=== PATIENT | male | born 1975 | race Caucasian/White ===

== ENCOUNTER 2020-12-05 07:55 | Outpatient (REF) | payer BC, SELFPAY ==
--- NOTE | ~2020-12-05 | XR_ITS ---
EXAMINATION: XR LUMBOSACRAL SPINE CLINICAL INFORMATION: Low back pain. COMPARISON: None TECHNIQUE: Three views of the lumbosacral spine. FINDINGS: The vertebral bodies and posterior elements are normal. The disc spaces are preserved and the vertebral alignment is normal. The paraspinal soft tissues are normal. XR/XR lumbar spine 2-3V IMPRESSION: Unremarkable lumbar spine exam.
[2020-12-05 08:40] LABS: MANUAL DIFF FLAG NO
[2020-12-05 09:05] LABS: Basophils Percent Auto 0.5 % (0-2); Eosinophils Absolute Auto 0.1 X10*3/uL (0.0-0.4); Eosinophils Percent Auto 3.3 % (0-4); Hematocrit 47.7 % (42-52); Hemoglobin 14.7 g/dl (14.0-18.0); Imm Gran Abs Auto 0.01 X10*3/uL (0.00-0.03); Imm Gran Pct Auto 0.2 % (0.0-0.4); Lymphocytes Absolute Auto 1.2 X10*3/uL (1.2-4.9); Mean Corpuscular HGB Conc 30.8 g/dl (31.0-36.0); Mean Corpuscular Hemoglobin 28.9 pg (27.0-33.0); Mean Corpuscular Volume 93.7 fL (80-98); Mean Platelet Volume 10.8 fL (9.4-12.4); Monocytes Absolute Auto 0.4 X10*3/uL (0.1-1.2); Monocytes Percent Auto 8.8 % (2-11); Neutrophils Absolute Auto 2.5 X10*3/uL (2.0-8.3); Neutrophils Percent Auto 59.2 % (45-73); Platelet Count 202 X10*3/uL (160-400); Red Blood Count 5.09 X10*6/uL (4.60-5.80); Red Cell Distribution Width 12.1 % (11.0-16.0); White Blood Count 4.2 X10*3/uL (4.8-10.8)
[2020-12-05 09:11] LABS: Alanine Aminotransferase 20 U/L (0-40); Alkaline Phosphatase 63 U/L (39-117); Anion Gap 12 (12-20); Aspartate Amino Transferase 24 U/L (5-37); Bilirubin Total 0.5 mg/dL (0.0-1.0); Blood Urea Nitrogen 16 mg/dL (9-16); Calcium 9.1 mg/dL (8.4-10.2); Carbon Dioxide 28 mmol/L (22-29); Chloride 106 mmol/L (96-108); Cholesterol 163 mg/dL; Estimated Glomerular Filt Rate > 60; Glucose Random 94 mg/dL (60-115); HDL Cholesterol 47 mg/dL; LDL Cholesterol Calculated 97 mg/dl; Potassium 4.8 mmol/L (3.3-5.1); Sodium 141 mmol/L (135-145); Total Protein 6.5 g/dL (6.5-8.0); Triglycerides 97 mg/dL
== END 2020-12-05 07:56 | disposition home or self-care (01) ==
LOC: HO.LAB 07:55
PROVIDERS: PCP Internal Medicine; Visit Provider Internal Medicine
DX: D64.9 Anemia, unspecified (principal); K21.9 Gastro-esophageal reflux disease without esophagitis; M54.5 Low back pain
CPT/HCPCS: 36415; 72100; 80053; 80061; 85025

== ENCOUNTER → 2020-12-26 14:31 | Outpatient (BNV) | payer BC, SELFPAY | PROVIDERS: PCP Internal Medicine; Referring Provider Internal Medicine; Visit Provider Internal Medicine | DX: D72.819 Decreased white blood cell count, unspecified (principal) | CPT/HCPCS: 99203; 99213 ==

== ENCOUNTER 2021-02-14 11:46 | Outpatient (REF) | payer BC, SELFPAY | END 2021-02-14 11:47 | disposition home or self-care (01) | LOC: HO.LNP 11:46 | PROVIDERS: Visit Provider Internal Medicine | DX: Z20.822 Contact with and (suspected) exposure to COVID-19 (principal); J06.9 Acute upper respiratory infection, unspecified | CPT/HCPCS: U0003; U0005 ==

== ENCOUNTER 2021-04-10 06:20 | Emergency (ER) | payer BC, SELFPAY ==
--- NOTE | ~2021-04-10 | XR_ITS ---
EXAMINATION: XR LUMBOSACRAL SPINE CLINICAL INFORMATION: Back pain COMPARISON: 12/05/2020 TECHNIQUE: Three views of the lumbosacral spine. FINDINGS: 5 lumbar type vertebral bodies are normal in height and alignment. Intervertebral disc spaces are preserved. Straightening of lumbar lordosis. Tiny anterior degenerative osteophytes L2 and L3. Spinous processes are intact. Minimal left convex scoliosis may be positional as it was not seen on the prior study. Limited views of the sacrum and sacroiliac joints are unremarkable. XR/XR lumbar spine 2-3V IMPRESSION: Minimal degenerative changes without evidence of acute injury.
[2021-04-10 06:31] VITALS: BP 119/78; PULSE 82; RESP 18; TEMP 36.7; O2SAT 100; BMI 22.3
[2021-04-10] MEDS: Ibuprofen 600 MG TABLET PO (07:05)
[2021-04-10 07:13] LABS: Appearance Urine CLEAR; Color Urine YELLOW; Glucose Urine UA NEG (NEG); Leukocyte Esterase Urine NEG (NEG); Nitrite Urine NEG (NEG); PH 6.5 (5.0-8.0); Urine Blood NEG (NEG); Urine Ketones NEG (NEG); Urine Protein TRACE MG/DL (NEG-TRACE)
--- NOTE | 2021-04-10 07:20 | ED.BACK ---
HPI - Back Pain/Injury General Chief Complaint: Back Pain/Injury Stated Complaint: Back pain Time Seen by Provider: 04/10/21 06:56 Source: patient Mode of arrival: ambulatory Limitations: no limitations History of Present Illness HPI Narrative: 46 years old male came in for evaluation of low back pain. Patient was fixing his daughter bed needed to bend and pulling the mattress while his pending, patient initially felt okay then shortly after started to have low back pain that progressively over night got worse, pain is radiating to both buttocks area, patient declined any urinary or stool incontinence. Patient still able to ambulate with difficulty and pain. No other injuries to the low back. Patient has no history of kidney stones in the past. Related Data Home Medications Medication Instructions Recorded Confirmed omega-3 fatty acids 1,250 mg PO DAILY 12/26/20 02/27/21 Previous Rx's Medication Instructions Recorded acetaminophen 650 mg 650 mg PO DAILY 90 Days #90 tab 10/01/20 tablet,extended release (Tylenol Arthritis Pain) ibuprofen 800 mg tablet 800 mg PO Q8H PRN 30 Days #30 tab 10/01/20 lidocaine 5 % topical patch 1 patch TOPICAL DAILY 15 Days #15 10/01/20 ea gabapentin 400 mg capsule 400 mg PO BEDTIME #30 cap 11/14/20 cyclobenzaprine 10 mg tablet 10 mg PO TID PRN #14 tab 04/10/21 ibuprofen 600 mg tablet 600 mg PO TID PRN #20 tab 04/10/21 Allergies Allergy/AdvReac Type Severity Reaction Status Date / Time No Known Allergies Allergy Verified 02/27/21 16:16 Review of Systems Review of Systems: All other systems are reviewed and are negative Constitutional: Reports as per HPI and Reports no additional constitutional complaints Eyes: Reports as per HPI and Reports no additional eye complaints Reports system reviewed and no additional complaints, except as documented Cardiovascular: Reports as per HPI and Reports no additional cardiovascular complaints Respiratory: Reports as per HPI and Reports no additional respiratory complaints Gastrointestinal: Reports as per HPI and Reports no additional gastrointestinal complaints Genitourinary: Reports no additional female genitourinary complaints Musculoskeletal: Reports no additional musculoskeletal complaints Skin/Breast: Reports system reviewed and no additional complaints, except as docu Psychiatric: Reports no additional psychiatric complaints Endocrine: Reports no additional endocrine complaints Hematologic/Lymphatic: Reports no additional hematologic/lymphatic complaints Allergic/Immunologic: Reports no additional allergic/immunologic complaints Reports system reviewed and no additional complaints, except as documented and Reports Abnormal speech present [facility] Past Medical History Medical History GERD (gastroesophageal reflux disease) Leukopenia Lumbar back pain Polysubstance abuse Surgical History History of hemorrhoidectomy Family History Family History Father Lung cancer Mother No problems noted. Brother In good health Son In good health Daughter In good health Social History Social History Housing: Apartment Alcohol intake: unknown Patient Tobacco Use Status: Former Tobacco user Quit Date: 1998 Tobacco use type: Cigarette Use of substances other than those prescribed or required for medical reasons: No Substance Use Type: Marijuana Advance Directives: No Current occupational status: employed Physical Exam Vital Signs: Vital Signs: Last Vital Signs Temp 98.4 F 04/10/21 08:21 Pulse 64 04/10/21 08:21 Resp 14 04/10/21 08:21 BP 103/57 L 04/10/21 08:21 Pulse Ox 95 04/10/21 08:21 Body Mass Index 22.3 Vital signs have been reviewed as appeared to be correct. Blood pressure normal. Heart rate normal. Respiration rate normal. Temperature normal. Oxygen saturation normal. Appearance: Alert. Oriented X3. No acute distress. Head: Normal external exam. Normocephalic. Atraumatic. No Gonzalez signs noted. No raccoon eyes noted Eyes: PERRLA. EOMI. Conjunctiva and sclera normal. Eyelids normal. ENT: TM's Normal. Pharynx normal. Uvula midline. Moist mucous membranes. No trismus noted. No drooling noted. No muffled voice noted. Neck: Normal inspection. Neck supple. FROM. No adenopathy. Thyroid Normal. No meningeal signs. No neck mass noted. CVS: Normal heart rate and rhythm. Heart sound normal. No murmurs noted. Pulses normal throughout. Respiratory: No respiratory distress. Painless inspiration. Breath sounds normal. No wheezes/rales/rhonchi noted. Chest nontender. No accessory muscle usage noted or decreased air movement noted. Abdomen: Soft and nontender. Bowel sounds normal in all 4 quadrants. No distention noted. No organomegaly noted. No visible injury noted. Back: No CVA tenderness. No step-off, no deformity, there is paravertebral muscle spasm, no point of tenderness, limited range of motion due to pain, able to ambulate Skin: Skin warm and dry. Normal skin color. Normal skin turgor. No rashes/lesions/lacerations noted. Extremities: No lower extremity edema. Extremities exhibit normal range of motion. Extremities nontender. Neuro: Oriented X 3. Cranial nerve exam: II-XII are grossly intact No motor deficit. No sensory deficit. Reflexes normal. Able to ambulate on both toes and heels, Course Course Course Narrative: Assessment and plan. 46-year-old male came in with low back pain after bending and pulling heavy object since last night, physical exam/x-ray of the left lumbar spine/UA is indicating pain is mostly muscular. MDM - Back Pain/Injury Medical Records Attestation: I reviewed the patient's medical records. Lab Data Attestation: I reviewed the patient's lab results. Labs: Lab Results 04/10/21 Range/Units 07:06 Urine Color YELLOW Urine Appearance CLEAR Urine pH 6.5 (5.0-8.0) Ur Specific [place] 1.020 (1.005-1.025) Urine Protein TRACE (NEG-TRACE) MG/DL Urine Glucose (UA) NEG (NEG) MG/DL Urine Ketones NEG (NEG) MG/DL Urine Blood NEG (NEG) Urine Nitrite NEG (NEG) Ur Leukocyte Esterase NEG (NEG) Imaging Data Lumbar spine x-ray: Radiologist's impression: Minimal degenerative changes without evidence of acute injury. Discharge Plan Discharge Clinical Impression: Lumbar back pain, Strain of lumbar region Patient Disposition: Home, Self-Care Instructions: Muscle Strain (ED) Prescriptions: New ibuprofen 600 mg tablet 600 mg PO TID PRN (Reason: pain) Qty: 20 RF: 0 cyclobenzaprine 10 mg tablet 10 mg PO TID PRN (Reason: muscle spasm) Qty: 14 RF: 0 No Action acetaminophen [Tylenol Arthritis Pain] 650 mg tablet extended release 650 mg PO DAILY 90 Days Qty: 90 RF: 1 ibuprofen 800 mg tablet 800 mg PO Q8H PRN (Reason: pain) 30 Days Qty: 30 RF: 0 lidocaine 5 % adhesive patch,medicated 1 patch topical DAILY 15 Days Qty: 15 RF: 0 gabapentin 400 mg capsule 400 mg PO BEDTIME Qty: 30 RF: 6 [place] 3 Capsule 1,250 mg PO DAILY RF: 0 Referrals: Jorgito Hunter MD [Primary Care Provider] - 2 days Stand Alone Forms: Work/School Release Interventions: ED Discharge Assessment Last Done: 04/10/21 09:13 Discharge Date/Time: 04/10/21 09:14
[2021-04-10 08:21] VITALS: BP 103/57; PULSE 64; RESP 14; TEMP 36.9; O2SAT 95
== END 2021-04-10 09:14 | disposition home or self-care (01) ==
PROVIDERS: Emergency Provider Emergency Medicine; PCP Internal Medicine
DX: S39.012A Strain of muscle, fascia and tendon of lower back, initial encounter (principal); X50.1XXA Overexertion from prolonged static or awkward postures, initial encounter; Y93.E9 Activity, other interior property and clothing maintenance; Y92.003 Bedroom of unspecified non-institutional (private) residence as the place of occurrence of the external cause; Y99.9 Unspecified external cause status
CPT/HCPCS: 72100; 81003; 99283; 99284

== ENCOUNTER 2022-08-22 10:21 | Day surgery (SDC) | payer BC, SELFPAY ==
--- NOTE | 2022-08-21 13:26 | HO.ANESPROP2 ---
Documented by User: Kathleen Carmona NP 08/21/22 13:27 HPI - Anesthesia Eval Consult details Narrative: 47yo M for Colonoscopy Hx polysub abuse PMFSH Active Problems Active Problems: All Active Problems (Updated 11/14/21 @ 17:46 by Raquel Faulkner MD) Upper respiratory tract infection (Acute) Bright red blood per rectum (Acute) Screening for colon cancer (Acute) Physical exam (Acute) Leukopenia (Acute) Lumbar back pain (Acute) GERD (gastroesophageal reflux disease) (Acute) Past Medical History Medical History GERD (gastroesophageal reflux disease) Leukopenia Lumbar back pain Physical exam Polysubstance abuse Family History Family History Father Lung cancer Mother No problems noted. Brother In good health Son In good health Daughter In good health Surgical History Surgical History (Updated 04/02/22 @ 13:37 by Aleta Ku RN) H/O colonoscopy History of hemorrhoidectomy Social History Social History Housing: Apartment Alcohol intake: former Patient Tobacco Use Status: Former Tobacco user Quit Date: 1998 Tobacco use type: Cigarette e-Cigarette/Vaping Use: Never Used Use of substances other than those prescribed or required for medical reasons: No Substance Use Type: Marijuana Are you DNR?: No Advance Directives: No Advance Directives Information Provided: Yes service: No Current occupational status: employed Cognitive needs: No Hearing needs: No Vision needs: No Meds Allergies Allergy/AdvReac Type Severity Reaction Status Date / Time No Known Allergies Allergy Verified 12/03/21 10:49 Home Medications Medication Instructions Recorded Confirmed Last Taken Type omega-3 fatty acids 1,250 mg PO DAILY 12/26/20 11/14/21 Unknown History Exam Exam Date and Time: August 21, 20221325 Assessment and Plan Assessment Anesthesia Assessment: Chart Reviewed Documented by User: Kamila Siegel MD 08/22/22 12:07 [facility] Past Medical History Medical History GERD (gastroesophageal reflux disease) Leukopenia Lumbar back pain Physical exam Polysubstance abuse Family History Family History Father Lung cancer Mother No problems noted. Brother In good health Son In good health Daughter In good health Family history of problems with anesthesia: No Surgical History Surgical History (Updated 04/02/22 @ 13:37 by Aleta Ku RN) H/O colonoscopy History of hemorrhoidectomy History of Problems with Anesthesia: No Social History Social History Housing: Apartment Alcohol intake: former Patient Tobacco Use Status: Former Tobacco user Quit Date: 1998 Tobacco use type: Cigarette e-Cigarette/Vaping Use: Never Used Use of substances other than those prescribed or required for medical reasons: No Substance Use Type: Marijuana Are you DNR?: No Advance Directives: No Advance Directives Information Provided: Yes service: No Current occupational status: employed Cognitive needs: No Hearing needs: No Vision needs: No Meds Allergies Allergy/AdvReac Type Severity Reaction Status Date / Time No Known Allergies Allergy Verified 12/03/21 10:49 Home Medications Medication Instructions Recorded Confirmed Last Taken Type omega-3 fatty acids 1,250 mg PO DAILY 12/26/20 11/14/21 Unknown History Exam Airway Mallampati Class: II TM Dist: >3cm Neck ROM: Full Heart: rrr Lungs: cta Assessment and Plan Assessment Anesthesia Assessment: Anesthesia Plan Discussed Final Anesthetic Review Family History of Problems with Anesthesia: No History of Problems with Anesthesia: No NPO: Yes ASA Class: II Final Preanesthetic Review: No Changes in Pt Med Stat, Meds/Allgs Chart Reviewed and Consent Obtained/Reviewed Patient Risk: Intermediate Procedure Risk: Intermediate Anesthetic Plan Anesthetic Plan: MAC: Disposition: Standard PACU
--- NOTE | 2022-08-22 11:25 | MHC.SHP ---
Pre-Procedural Eval Section A Date of Service: 08/22/22 The patient is an INPATIENT: No The History & Physical has been completed within 30 days and I have reviewed it.: No Section B Chief Complaint: screening Details of Present Illness: Colon cancer screening Relevant Family History (Specify if Yes): No Relevant Social History: Tobacco Use (Former smoker) Present Medications: see Short Stay Collaborative assessment Medical History: Significant History (Polysubstance abuse) History of Previous Operations: Relevant previous surgery/procedure and date(s) (History of hemorrhoidectomy) Allergies: Allergies Allergy/AdvReac Type Severity Reaction Status Date / Time No Known Allergies Allergy Verified 12/03/21 10:49 Review of Systems Sugical H&P ROS: Negative: Constitution, Cardiovascular, Respiratory and Gastrointestinal Exam Surgical H&P Exam: Normal: Heart, Normal: Lungs, Normal: Extremities and Normal: Abdomen Plan Diagnosis/Plan: Unchanged I have reviewed the history and physical and performed a pertinent physical examination on my patient. No changes have occurred unless specified. Time Spent With Patient Time: Total time managing care of this patient today ____ minutes.
[2022-08-22 11:41] VITALS: BMI 25.1
[2022-08-22 11:49] VITALS: BP 111/67; PULSE 82; RESP 16; TEMP 37; O2SAT 96
[2022-08-22 11:51] LABS: Amphetamine Screen Urine Not Detected (Not Detect); Barbiturates, Urine Not Detected (Not Detect); Benzodiazepines Screen Urine Not Detected (Not Detect); Cannabinoid Screen Urine Not Detected (Not Detect); Cocaine Screen Urine Not Detected (Not Detect); Fentanyl, urine Not Detected (Not Detect); Opiate Screen Urine Not Detected (Not Detect); Phencyclidine Screen Urine Not Detected (Not Detect)
[2022-08-22] MEDS: Lactated Ringers 1,000 ML 100 ML IVCONT (11:51)
--- NOTE | 2022-08-22 12:06 | PM.OP ---
Brief Operative Note Date of Service: 08/22/22 Pre-op diagnosis: Colon cancer screening, Post-op diagnosis: other (Colon polyps, diverticulosis, hemorrhoids) Procedure: COLONOSCOPY TILL CECUM WITH SNARE POLYPECTOMY, SUBMUCOSAL INJECTION AND HEMOCLIP PLACEMENT Surgeon: Honey Li MD Anesthesia: MAC Was an International Marketing Manager used for this Procedure?: Yes International Marketing Manager: Oly Chung Estimated blood loss (mL): 1 Pathology: other (a. ascending colon polyp) Condition: stable Disposition: PACU
--- NOTE | 2022-08-22 12:11 | W.PM.OPN ---
Operative Note Operative Note Date of Service: 08/22/22 Narrative: COLONOSCOPY TILL CECUM WITH SNARE POLYPECTOMY, SUBMUCOSAL INJECTION AND HEMOCLIP PLACEMENT Indication:? Colon cancer screening Endoscopist:? Honey Li MD Anesthesia Provider:?Dr Figueroa Anesthesia type:?MAC Consent: Indications for the procedure and potential complications of bleeding, perforation, reaction to medications and missed diagnosis were discussed with the patient and informed consent was obtained. Instrument: Olympus CF H 190 L variable stiffness adult colonoscope Monitoring: Vital signs and clinical assessment, intermittent blood pressure monitoring, continuous EKG monitoring, Pulse oximetry and Carbon Dioxide monitoring were done throughout the procedure. Please see anesthesia flowsheet. Colon withdrawl time was 20 minutes. Procedure: The patient was placed in the left lateral decubitis position and pre-procedure medications were administered. After a digital rectal examination of the ano-rectum, the video colonoscope was inserted into the rectum and advanced through the colon to the cecum. The colonoscope was slowly withdrawn in a retrograde panoramic fashion and the colon mucosa was carefully examined including a retroflexed view of the rectum. Findings and interventions are described below. Procedure Difficulty: Colon was long and tortuous and there was some loop formation - no maneuvers were required Findings: Terminal Ileum: Not evaluated Cecum: Normal Ascending Colon: A 2.5 x 3 cms flat polyp in the proximal AC - adjacent to ICV. Polyp was raised with 6 cc of normal saline and removed with a hot snare. Polypectomy site was closed with 2 hemoclips and marked with Marisol ink Transverse Colon: Normal Descending Colon: Moderate diverticulosis Sigmoid Colon: Moderate diverticulosis Rectum: Normal Ano-rectum: Moderate internal hemorrhoids Colon preparation: Good after some irrigation Impression and Post Procedure Diagnosis: Colonoscopy Findings: One large polyp removed Moderate diverticulosis seen in the left colon Moderate hemorrhoids on retroflexed exam. Plan: Await pathology results Patient has an appointment on 08/27/22 in the GI Clinic with Dr Perry. Repeat Colonoscopy interval based on path results - in 1 year to check polypectomy site in the AC if AC polyp is adenomatous and 10 years if polyps are hyperplastic (adult colonoscope for future colonoscopies). Above findings were reviewed with the patient and colon polyps and diverticulosis handouts were given in the discharge area
[2022-08-22 13:03] VITALS: BP 97/61; PULSE 74; RESP 15; TEMP 36.2; O2SAT 98
[2022-08-22 13:18] VITALS: BP 106/50; PULSE 69; RESP 12; O2SAT 96
[2022-08-22 13:33] VITALS: BP 106/55; PULSE 75; RESP 14; TEMP 36.7; O2SAT 98
== END 2022-08-22 14:27 | disposition home or self-care (01) ==
PROVIDERS: Nurse Practitioner; PCP Internal Medicine; Visit Provider Internal Medicine Gastroenterology
PROC: 0DJD8ZZ Inspection of Lower Intestinal Tract, Via Natural or Artificial Opening Endoscopic (ICD-10-PCS; CPT 45378; principal; 2022-08-22 11:40)
DX: Z12.11 Encounter for screening for malignant neoplasm of colon (principal); D12.2 Benign neoplasm of ascending colon; K57.30 Diverticulosis of large intestine without perforation or abscess without bleeding; K64.8 Other hemorrhoids; K59.00 Constipation, unspecified; K50.00 Crohn's disease of small intestine without complications; K21.9 Gastro-esophageal reflux disease without esophagitis; D72.819 Decreased white blood cell count, unspecified; F12.90 Cannabis use, unspecified, uncomplicated; F19.10 Other psychoactive substance abuse, uncomplicated; Z79.899 Other long term (current) drug therapy; Z98.890 Other specified postprocedural states; Z87.891 Personal history of nicotine dependence
CPT/HCPCS: 45385; 45381; 80307; 88305

== ENCOUNTER → 2022-08-27 15:02 | Outpatient (BNVA) | payer BC, SELFPAY | PROVIDERS: PCP Internal Medicine; Visit Provider Internal Medicine | DX: Z13.89 Encounter for screening for other disorder (principal) ==

== ENCOUNTER 2022-12-20 08:50 | Outpatient (REF) | payer BC, SELFPAY ==
[2022-12-20 09:04] LABS: MANUAL DIFF FLAG NO
[2022-12-20 10:28] LABS: Basophils Percent Auto 0.7 % (0-2); Eosinophils Absolute Auto 0.1 X10*3/uL (0.0-0.4); Eosinophils Percent Auto 2.1 % (0-4); Hematocrit 47.8 % (42.0-52.0); Hemoglobin 15.1 g/dl (14.0-18.0); Imm Gran Abs Auto 0.04 X10*3/uL (0.00-0.03); Imm Gran Pct Auto 0.9 % (0.0-0.4); Lymphocytes Absolute Auto 1.2 X10*3/uL (1.2-4.9); Lymphocytes Percent Auto 26.7 % (20-40); Mean Corpuscular HGB Conc 31.6 g/dl (31.0-36.0); Mean Corpuscular Hemoglobin 28.4 pg (27.0-33.0); Mean Corpuscular Volume 89.8 fL (80.0-98.0); Mean Platelet Volume 10.4 fL (9.4-12.4); Monocytes Absolute Auto 0.4 X10*3/uL (0.1-1.2); Monocytes Percent Auto 8.8 % (2-11); Neutrophils Absolute Auto 2.6 x10*3/uL (2.0-8.3); Neutrophils Percent Auto 60.8 % (45-73); Platelet Count 236 X10*3/uL (160-400); Red Blood Count 5.32 X10*6/uL (4.60-5.80); Red Cell Distribution Width 12.1 % (11.0-16.0); White Blood Count 4.3 X10*3/uL (4.8-10.8)
== END 2022-12-20 08:51 | disposition home or self-care (01) ==
LOC: HO.LAB 08:50
PROVIDERS: PCP Internal Medicine; Visit Provider Internal Medicine
DX: Z00.00 Encounter for general adult medical examination without abnormal findings (principal); K62.5 Hemorrhage of anus and rectum
CPT/HCPCS: 36415; 80053; 80061; 83540; 85025

== ENCOUNTER → 2023-02-10 14:58 | Outpatient (BNV) | payer BC, SELFPAY | PROVIDERS: PCP Internal Medicine; Referring Provider Internal Medicine; Visit Provider Internal Medicine Medical Oncology | DX: D72.819 Decreased white blood cell count, unspecified (principal) | CPT/HCPCS: 99204 ==

== ENCOUNTER 2023-02-19 09:05 | Day surgery (SDC) | payer BC, SELFPAY ==
[2023-02-17 15:19] VITALS: BMI 26.1
--- NOTE | 2023-02-18 10:44 | P.CONAN_ITS ---
Documented by User: Kathleen Carmona NP 02/18/23 10:45 HPI - Anesthesia Eval Consult details Narrative: 47yo M for Colonoscopy PMFSH Active Problems Active Problems: All Active Problems (Updated 02/10/23 @ 15:22 by Nicolas Collado MD) Upper respiratory tract infection (Acute) Bright red blood per rectum (Acute) Screening for colon cancer (Acute) Personal history of colonic polyps (Acute) Diverticulosis (Acute) Physical exam (Acute) Leukopenia (Acute) Lumbar back pain (Acute) GERD (gastroesophageal reflux disease) (Acute) Past Medical History Medical History Physical exam Leukopenia Lumbar back pain Polysubstance abuse GERD (gastroesophageal reflux disease) Family History Family History Father Lung cancer Mother No problems noted. Brother In good health Son In good health Daughter In good health Family history of problems with anesthesia: No Surgical History Surgical History H/O colonoscopy History of hemorrhoidectomy History of Problems with Anesthesia: No Social History Social History Housing: Apartment Alcohol intake: former Patient Tobacco Use Status: Former Tobacco user Quit Date: 1998 Tobacco use type: Cigarette e-Cigarette/Vaping Use: Never Used Second Hand Smoke Exposure: No Substance Use Type: Marijuana Have you been hit, kicked, punched, or otherwise hurt by someone within the past year? If so, by whom?: No Are you DNR?: No Advance Directives: No Advance Directives Information Provided: Yes Recently lost weight without trying: No Eating poorly because of decreased appetite: No Nutrition Risks: No Nutritional Risk service: No Current occupational status: employed Cognitive needs: No Hearing needs: No Vision needs: No Meds Allergies Allergy/AdvReac Type Severity Reaction Status Date / Time No Known Allergies Allergy Verified 02/10/23 15:04 Exam Exam Date and Time: February 18, 2023 1044 Height,Weight and Vital Signs: Height 5 ft 10 in Weight 82.554 kg Pertinent Lab Results Pertinent Lab Results: Laboratory Tests 02/10/23 02/10/23 15:33 15:33 WBC 4.7 L Hgb 14.5 Hct 44.5 Plt Count 221 Sodium 142 Potassium 4.2 Chloride 111 H Carbon Dioxide 26 BUN 18 H Creatinine 1.16 Assessment and Plan Assessment Anesthesia Assessment: Chart Reviewed Final Anesthetic Review Family History of Problems with Anesthesia: No History of Problems with Anesthesia: No Documented by User: Ailyn Figueroa MD 02/19/23 10:32 [facility] Past Medical History Medical History Physical exam Leukopenia Lumbar back pain Polysubstance abuse GERD (gastroesophageal reflux disease) Family History Family History Father Lung cancer Mother No problems noted. Brother In good health Son In good health Daughter In good health Surgical History Surgical History H/O colonoscopy History of hemorrhoidectomy Social History Social History Housing: Apartment Alcohol intake: former Patient Tobacco Use Status: Former Tobacco user Quit Date: 1998 Tobacco use type: Cigarette e-Cigarette/Vaping Use: Never Used Second Hand Smoke Exposure: No Substance Use Type: Marijuana Have you been hit, kicked, punched, or otherwise hurt by someone within the past year? If so, by whom?: No Are you DNR?: No Advance Directives: No Advance Directives Information Provided: Yes Recently lost weight without trying: No Eating poorly because of decreased appetite: No Nutrition Risks: No Nutritional Risk service: No Current occupational status: employed Cognitive needs: No Hearing needs: No Vision needs: No Meds Allergies Allergy/AdvReac Type Severity Reaction Status Date / Time No Known Allergies Allergy Verified 02/10/23 15:04 Exam Airway Mallampati Class: III TM Dist: >3cm Neck ROM: Full Heart: rrr Lungs: cta Assessment and Plan Assessment Anesthesia Assessment: Anesthesia Plan Discussed Final Anesthetic Review NPO: Yes ASA Class: III Final Preanesthetic Review: No Changes in Pt Med Stat, Meds/Allgs Chart Reviewed, Consent Obtained/Reviewed and Anes Risks/Benef Reviewed Patient Risk: Intermediate Procedure Risk: Low Anesthetic Plan Anesthetic Plan: MAC: Disposition: Standard PACU (leukopenia, workup in progress history of heroin abuse )
[2023-02-19 10:16] VITALS: BP 118/72; PULSE 70; RESP 18; TEMP 36.4; O2SAT 95
[2023-02-19] MEDS: Lactated Ringers 1,000 ML 100 ML IVCONT (10:21)
--- NOTE | 2023-02-19 10:38 | MHC.SHP ---
Pre-Procedural Eval Section A Date of Service: 02/19/23 The patient is an INPATIENT: No The History & Physical has been completed within 30 days and I have reviewed it.: No Section B Chief Complaint: Personal history of colonic polyps,Diverticulosis Relevant Family History (Specify if Yes): No Relevant Social History: Tobacco Use (Former smoker) Present Medications: see Short Stay Collaborative assessment Medical History: Significant History (GERD (gastroesophageal reflux disease) Leukopenia Lumbar back pain Physical exam Polysubstance abuse) History of Previous Operations: Relevant previous surgery/procedure and date(s) (History of colonoscopy) Allergies: Allergies Allergy/AdvReac Type Severity Reaction Status Date / Time No Known Allergies Allergy Verified 02/10/23 15:04 Review of Systems Sugical H&P ROS: Negative: Constitution, Cardiovascular, Respiratory and Gastrointestinal Exam Surgical H&P Exam: Normal: Heart, Normal: Lungs, Normal: Extremities and Normal: Abdomen Plan Diagnosis/Plan: Unchanged I have reviewed the history and physical and performed a pertinent physical examination on my patient. No changes have occurred unless specified. Time Spent With Patient Time: Total time managing care of this patient today ____ minutes.
--- NOTE | 2023-02-19 10:44 | P.OP_ITS ---
Operative Note Operative Note Date of Service: 02/19/23 Narrative: COLONOSCOPY TILL CECUM WITH BIOPSIES Pre-op diagnosis: Surveillance of colon polyps Post-op diagnosis:? Colon polyps, diverticulosis, hemorrhoid Endoscopist:? Honey Li MD Anesthesia:?MAC Consent: Indications for the procedure and potential complications of bleeding, perforation, reaction to medications and missed diagnosis were discussed with the patient and informed consent was obtained. Instrument: Olympus PCF H 190 L variable stiffness pediatric colonoscope Monitoring: Vital signs and clinical assessment, intermittent blood pressure monitoring, continuous EKG monitoring, Pulse oximetry and Carbon Dioxide monitoring were done throughout the procedure. Please see anesthesia flowsheet. Colon withdrawl time was 20 minutes. Procedure: The patient was placed in the left lateral decubitis position and pre-procedure medications were administered. After a digital rectal examination of the ano-rectum, the video colonoscope was inserted into the rectum and advanced through the colon to the cecum. The colonoscope was slowly withdrawn in a retrograde panoramic fashion and the colon mucosa was carefully examined including a retroflexed view of the rectum. Findings and interventions are described below. Procedure Difficulty: Colon was long and tortuous and there was spasm and some loop formation. Findings: Terminal Ileum: Not evaluated Cecum: Normal Ascending Colon: A 3-4 mm sessile polyp in the proximal AC - removed with a cold biopsy No recurrent/residual polyp noted at past polypectomy site Transverse Colon: Normal Descending Colon: Two 3-4 mm sessile polyps - removed with a cold biopsy. Moderate diverticulosis Sigmoid Colon: Moderate diverticulosis Rectum: Normal Ano-rectum: Moderate internal hemorrhoids Colon preparation: Good after some irrigation Impression and Post Procedure Diagnosis: Colonoscopy Findings: Three small polyps removed Moderate diverticulosis seen in the left colon Moderate hemorrhoids on retroflexed exam. Plan: Await pathology results Patient has an appointment on 02/2023 in the GI Clinic with Echo Clark FNP- [facility]. Repeat Colonoscopy interval based on path results - in 3 years if polyps are adenomatous and due to a hx of adenomatous colon polyps. Above findings were reviewed with the patient and colon polyps and diverticulosis handouts were given in the discharge area
[2023-02-19 11:27] VITALS: BP 94/50; PULSE 69; RESP 14; TEMP 36.5; O2SAT 96
[2023-02-19 11:41] VITALS: BP 106/66; PULSE 60; RESP 16; O2SAT 97
[2023-02-19 11:56] VITALS: BP 107/66; PULSE 70; RESP 18; TEMP 36.5; O2SAT 97
== END 2023-02-19 12:13 | disposition home or self-care (01) ==
PROVIDERS: PCP Internal Medicine; Visit Provider Internal Medicine Gastroenterology
PROC: 0DJD8ZZ Inspection of Lower Intestinal Tract, Via Natural or Artificial Opening Endoscopic (ICD-10-PCS; CPT 45378; principal; 2023-02-19 10:50)
DX: K63.5 Polyp of colon (principal); K57.30 Diverticulosis of large intestine without perforation or abscess without bleeding; K64.8 Other hemorrhoids; Z86.010 Personal history of colon polyps; F19.10 Other psychoactive substance abuse, uncomplicated; Z87.891 Personal history of nicotine dependence
CPT/HCPCS: 45380; 88305; J3010

== ENCOUNTER → 2023-02-19 09:05 | Outpatient (BNV) | payer BC, SELFPAY | PROVIDERS: PCP Internal Medicine; Visit Provider Internal Medicine Gastroenterology | DX: Z12.11 Encounter for screening for malignant neoplasm of colon (principal); Z86.010 Personal history of colon polyps; D12.2 Benign neoplasm of ascending colon; D12.4 Benign neoplasm of descending colon; K57.30 Diverticulosis of large intestine without perforation or abscess without bleeding; K64.9 Unspecified hemorrhoids | CPT/HCPCS: 45380 ==

== ENCOUNTER 2023-02-20 11:55 | Emergency (ER) | payer BC, SELFPAY ==
[2023-02-20 12:36] VITALS: BP 114/84; PULSE 81; RESP 18; TEMP 36.9; O2SAT 98; BMI 28.4
--- NOTE | 2023-02-20 12:39 | ED_ITS ---
HPI - General Adult General Chief complaint: Back Pain/Injury Stated complaint: Back Pain S/P Injury 02/14/23 Time Seen by Provider: 02/20/23 12:39 Source: patient, RN notes reviewed and old records reviewed Mode of arrival: ambulatory Limitations: no limitations History of Present Illness HPI narrative: 47-year-old male presents for evaluation lower back pain. Patient reports that he is constantly bending over and picking things also floor for work He has a history of lower back pain He had an x-ray of March of 2021 showing mild degenerative changes in the lumbar spine He denies any falls or trauma to the back His symptoms worsened after playing baseball 3 days ago His pain radiates into his legs Denies any numbness, tingling, bladder or bowel incontinence. Denies any lower extremity weakness Related Data Previous Rx's Medication Instructions Recorded lidocaine 5 % topical patch 1 patch topical DAILY 15 days #15 01/02/23 ea ibuprofen 800 mg tablet 800 mg PO Q8H PRN pain 30 days #30 02/01/23 tabs dexamethasone 4 mg tablet 4 mg PO BID #6 tabs 02/20/23 ibuprofen 600 mg tablet 600 mg PO Q6H PRN pain #15 tabs 02/20/23 methocarbamol 500 mg tablet 500 mg PO TID PRN muscle spasm #12 02/20/23 tabs Allergies Allergy/AdvReac Type Severity Reaction Status Date / Time No Known Allergies Allergy Verified 02/10/23 15:04 Review of Systems Constitutional: Constitutional: Denies chills and Denies fever(s) Cardiovascular: Cardiovascular: Denies chest pain and Denies dyspnea Respiratory: Respiratory: Denies dyspnea Gastrointestinal: Gastrointestinal: Denies abdominal pain Genitourinary: Genitourinary: Denies dysuria Musculoskeletal: Musculoskeletal: Reports back pain [facility] Past Medical History Medical History Physical exam Leukopenia Lumbar back pain Polysubstance abuse GERD (gastroesophageal reflux disease) Surgical History H/O colonoscopy History of hemorrhoidectomy Family History Family History Father Lung cancer Mother No problems noted. Brother In good health Son In good health Daughter In good health Social History Social History Housing: Apartment Alcohol intake: former Patient Tobacco Use Status: Former Tobacco user Quit Date: 1998 Tobacco use type: Cigarette e-Cigarette/Vaping Use: Never Used Second Hand Smoke Exposure: No Substance Use Type: Marijuana service: No Current occupational status: employed Cognitive needs: No Hearing needs: No Vision needs: No Physical Exam ED Vital Signs: Vital Signs - 24 hr 02/20/23 12:36 Temperature 98.4 F Pulse Rate 81 Respiratory Rate 18 Blood Pressure 114/84 Pulse Oximetry 98 BMI result Body Mass Index 28.4 Const General: healthy appearing, comfortable, no acute distress, alert and awake Nutritional Appearance: well nourished Orientation/consciousness: patient oriented x3 HENMT Head: Yes normocephalic and Yes atraumatic Eyes Eyelids: Yes eyelids normal Conjunctivae: conjunctivae normal Sclerae: sclerae normal Corneas: corneas normal Pupils: Equal, round and reactive pupils present EOM: EOMs intact bilaterally Neck Neck: Yes full ROM Resp Effort & Inspection: normal respiratory effort, able to speak in complete sentences and not labored Back/Spine/Pelvis Other: Patient has mild lumbar tenderness across the lumbar region without any focal vertebral tenderness. No step deformities. Straight leg raise negative bilaterally Skin General skin exam: elasticity normal Neuro General: patient oriented x3 Cranial nerves: Yes Equal, round and reactive pupils present and Yes Bilaterally intact EOM present Cognition (Neuro): normal cognition Extrem Other: Moving all extremities well without any obvious deformities Medical Decision Making Medical Decision Making MDM Narrative: 39-year-old male presents for evaluation of lower back pain. He has a history of similar in x-rays less than 2 years ago. No warning signs for cauda equina syndrome. There was no trauma, I do not see any indication for emergent imaging at this time. We will treat conservatively annual follow-up his PCP. Return precautions given Differential Diagnosis Differential Diagnoses: The differential diagnosis associated with the presentation includes Acute lower back pain Lumbar radiculopathy Sciatica Muscle strain Spondylolisthesis Disc herniation Discharge Plan Discharge Clinical Impression: Lumbar back pain Patient Disposition: Home, Self-Care Instructions: Acute Low Back Pain (ED) Additional Instructions: Use ibuprofen as directed. Use methocarbamol as needed for muscle spasms. This may make you sleepy, did not drink alcohol or drive after taking it Take dexamethasone twice daily for the next 3 days to help reduce inflammation your back You may also use warm compresses Follow-up with your primary doctor Prescriptions: New ibuprofen 600 mg tablet 600 mg PO Q6H PRN (Reason: pain) Qty: 15 0RF methocarbamol 500 mg tablet 500 mg PO TID PRN (Reason: muscle spasm) Qty: 12 0RF dexamethasone 4 mg tablet 4 mg PO BID Qty: 6 0RF No Action lidocaine 5 % adhesive patch,medicated 1 patch topical DAILY 15 Days Qty: 15 0RF Rx Instructions: leave on most painful area for up to 12 hrs ibuprofen 800 mg tablet 800 mg PO Q8H PRN (Reason: pain) 30 Days Qty: 30 0RF Stand Alone Forms: Work/School Release
== END 2023-02-20 12:47 | disposition home or self-care (01) ==
LOC: HO.ED 12:44
PROVIDERS: Emergency Provider Emergency Medicine; PCP Internal Medicine
DX: M54.50 Low back pain, unspecified (principal)
CPT/HCPCS: 99282; 99283

== ENCOUNTER 2023-03-04 15:03 | Outpatient (AMB) | payer BC, SELFPAY ==
--- NOTE | 2023-03-04 15:05 | MHC.OFFVIS ---
Intake Vital Signs 03/04/23 15:09 Height 5 ft 10 in Weight 185 lb 3.013 oz BMI 26.6 BP 119/70 Blood Pressure Location Lt brachial Position Sitting Pulse 91 Intake Visit Reasons: S/P [place]; Dr. Li Intake Note: Nick presents in the office as a follow up colonoscopy. CC: States that since the colonoscopy he feels okay and no concerns at the moment. Allergies No Known Allergies Allergy (Verified 03/04/23 15:09) HPI HPI Comments History of Present Illness Details This is a 47-year-old gentleman with no significant past medical history who is here after recent colonoscopy for results and follow-up. Patient currently has no gastrointestinal complaints to include abdominal pain, nausea, vomiting. 08/22/2022 - Colonoscopy: (Dr Li) Good prep. 2.5 x 3 cm flat polyp in proximal ascending colon status post piecemeal EMR, x2 Endoclips placed and marked with tattoo. Diverticulosis. Path: Sessile serrated polyp. 02/19/23 - Colonoscopy: (Dr Li) Good prep.No recurrent/residual polyp noted at past polypectomy site. Three small polyps removed. Moderate diverticulosis seen in the left colon. Moderate hemorrhoids on retroflexed exam. Path: A. Colon, ascending, biopsy: Clinically polypoid colonic mucosa noted; negative for a hyperplastic or neoplastic process. B. Colon, ascending, biopsy: Clinically polypoid colonic mucosa noted; negative for a hyperplastic or neoplastic process. 03/04/23: [place] results reviewed. No residual polyp noted previous AC site. Pt himself has no gastrointestinal complaints. [facility] Medical History Physical exam Leukopenia Lumbar back pain Polysubstance abuse GERD (gastroesophageal reflux disease) Surgical History H/O colonoscopy History of hemorrhoidectomy Family History Father Lung cancer Mother No problems noted. Brother In good health Son In good health Daughter In good health Social History Housing: Apartment Alcohol intake: former Patient Tobacco Use Status: Former Tobacco user Quit Date: 1998 Tobacco use type: Cigarette e-Cigarette/Vaping Use: Never Used Second Hand Smoke Exposure: No Substance Use Type: Marijuana service: No Current occupational status: employed Cognitive needs: No Hearing needs: No Vision needs: No Review of Systems Const All systems reviewed & are unremarkable except as noted in HPI and below Physical Exam Vital Signs: Last Vital Signs Pulse 91 03/04/23 15:09 BP 119/70 03/04/23 15:09 BMI result Body Mass Index 26.6 Gen appear: NAD HEENT: nonicteric, no cervical lymphadenopathy Chest: CTA CVS: Regular S1/S2 Abd: soft, nontender, nondistended, bowel sounds + Ext: no peripheral edema Neuro: A/Ox3, noted to move all extremities spontaneously Psych: interacting appropriately Assessment & Plan Assessment & Plan (1) Personal history of colonic polyps: Code(s): Z86.010 - Personal history of colonic polyps Plan: No residual SSL noted in the AC on most recent colonoscopy. Repeat colonoscopy recommended in 3-5 years, PRN follow up in the interim. Coding Level of Care Code Est Pt Level 3 (50245) Diagnoses Personal history of colonic polyps Z86.010
[2023-03-04 15:09] VITALS: BP 119/70; PULSE 91; BMI 26.6
== END 2023-03-04 15:27 | disposition home or self-care (01) ==
PROVIDERS: PCP Internal Medicine; Visit Provider Internal Medicine
DX: D12.2 Benign neoplasm of ascending colon (principal)
CPT/HCPCS: 99213

== ENCOUNTER → 2023-03-04 15:03 | Outpatient (BNVA) | payer BC, SELFPAY | PROVIDERS: PCP Internal Medicine; Visit Provider Internal Medicine ==

== ENCOUNTER 2025-03-22 14:43 | Outpatient (AMB) | payer SELFPAY ==
--- NOTE | 2025-03-22 14:59 | A.OFFPC_ITS ---
Vital Signs 03/22/25 15:00 Height 5 ft 10 in Weight 193 lb BMI 27.7 BP 110/62 Blood Pressure Location Lt brachial Position Sitting Respiration 18 Pulse 79 Pulse Source Pulse Oximeter Temp 97.3 F Temp Source Temporal Artery Scan Pulse Oximetry (%) 96 Oxygen Delivery Method Room Air Intake Visit Reasons: Pain in both feet/can't stand for long Television Picture Tube Rebuilder Required: No Accompanied by: Self / Same As Patient Allergies No Known Allergies Allergy (Verified 03/22/25 15:33) Medication List - Last Reconciled 03/22/25 by PABLITO Juárez ibuprofen 800 mg (1.3333 x 600 mg) PO Q6H PRN lidocaine 5% 1 patch topical DAILY 15 days Tobacco use date assessed: 03/22/25 Dental Screening Dental Screen Date: 03/22/25 Did you have a dental visit in the last 12 months?: No Did you have a dental problem in the last 6 months where you did not have access to dental care?: No Was dental information given to patient?: No HPI Pain in both feet/can't stand for long HPI Details The patient is complaining of pain underneath both feet that is worse when he gets up in the morning. Reports burning sensation. Consistent with plantar fascititis. He is requesting referral to podiatry. [facility] Medical History Physical exam Leukopenia Lumbar back pain Polysubstance abuse GERD (gastroesophageal reflux disease) Surgical History H/O colonoscopy History of hemorrhoidectomy Family History Father Lung cancer Mother No problems noted. Brother In good health Son In good health Daughter In good health Social History Housing: Apartment Alcohol intake: former Patient Tobacco Use Status: Former Tobacco user Tobacco use type: Cigarette e-Cigarette/Vaping Use: Never Used Second Hand Smoke Exposure: No Substance Use Type: Marijuana service: No Current occupational status: employed Cognitive needs: No Hearing needs: No Vision needs: No Questionnaire PHQ-9 Over the last 2 weeks, how often have you been bothered by any of the following problems? 1. Little interest or pleasure in doing things: not at all 2. Feeling down, depressed, or hopeless: not at all 3. Trouble falling or staying asleep, or sleeping too much: not at all 4. Feeling tired or having little energy: several days 5. Poor appetite or overeating: not at all 6. Feeling bad about yourself - or that you are a failure or have let yourself o r your family down: not at all 7. Trouble concentrating on things, such as reading the newspaper or watching television: not at all 8. Moving or speaking so slowly that other people could have noticed. Or the opposite - being so fidgety or restless that you have been moving around a lot more than usual: not at all 9. Thoughts that you would be better off or of hurting yourself in some way: not at all Total score: 1 Source: Developed by Drs. Jason Rodrigez, Karla Ramirez, Chaparro Fisher and colleagues, with an educational daniel from [employer]. Thrive Questionnaire Date Thrive assessed: 11/18/22 I am a: Patient What is your living situation today?: I have a steady place to live Within the past 12 months, did the food you bought not last and you didn't have the money to get more?: Never true Within the past 12 months, did you worry whether your food would run out before you got money to buy more?: Never true Do you have trouble paying for medicines?: No Do you have trouble getting transportation to medical appointments?: No Do you have trouble paying your heating and electricity bill?: No Do you have trouble taking care of your child, family member or friend?: No Do you have trouble with day-to-day activities such as bathing, preparing meals, shopping, managing finances, etc.?: No Are you currently unemployed and looking for a job?: No Are you interested in more education?: No Please select the resources that you would like help with: None Currently or been in a relationship where the following occur: No concerns reported THRIVE Score: 0 AUDIT C Alcohol Use Questionnaire (AUDIT-C) 1. How often do you have a drink containing alcohol?: Monthly or less 2. How many drinks containing alcohol do you have on a typical day when you are drinking?: 3 or 4 3. How often do you have six or more drinks on one occasion?: Less than monthly Total Score: 3 JODI-7 AMB Questionnaire JODI-7 Date JODI - 7 assessed: 11/18/22 Feeling nervous, anxious, or on edge: 0 = Not at all Not being able to stop or control worryin = Not at all Worrying too much about different things: 0 = Not at all Trouble relaxin = Not at all Being so restless that it is hard to sit still: 0 = Not at all Becoming easily annoyed or irritable: 0 = Not at all Feeling afraid as if something awful might happen: 0 = Not at all Total JODI-7 score (0-4 normal; 5-9 mild; 10-14 moderate; 15-21 severe): 0 Source: Developed by Drs. Jason Rodrigez, Karla Ramirez, Chaparro Fisher and colleagues, with an educational daniel from [employer]. Review of Systems Const Denies headache(s) Eyes Denies loss of vision ENT Denies vertigo, Denies dizziness, Denies headache(s) and Denies sore throat Card Denies chest pain, Denies leg edema and Denies lightheadedness Resp Denies cough, Denies hemoptysis and Denies wheezing GI Denies abdominal pain, Denies melena, Denies constipation, Denies diarrhea and Denies vomiting Denies dysuria, Denies urinary frequency and Denies urinary urgency Musc Denies arthralgias, Denies joint swelling, Denies numbness, Denies tingling and Reports other (pain to the bottom of feet (burning sensation)) Skin/Breast Reports system reviewed and no additional complaints, except as documented Neuro Denies behavioral changes, Denies vertigo, Denies dizziness, Denies headache(s), Denies loss of vision, Denies memory loss, Denies numbness and Denies tingling Psych Denies anxiety, Denies behavioral changes, Denies depression, Denies memory loss and Denies panic attacks Homer/Lymph Denies easy bleeding and Denies easy bruising Aller/Immun Denies wheezing Physical exam (Primary Care) Vital Signs: Last Vital Signs Temp 97.3 F 03/22/25 15:00 Pulse 79 03/22/25 15:00 Resp 18 03/22/25 15:00 BP 110/62 03/22/25 15:00 Pulse Ox 96 03/22/25 15:00 Oxygen Delivery Method Room Air 03/22/25 15:00 BMI result Body Mass Index 27.7 Tobacco/Smoking Status: Tobacco use Status Tobacco use date assessed 03/22/25 03/22/25 15:05 Patient Tobacco Use Status Former Tobacco user 03/22/25 15:05 Tobacco use type Cigarette 03/22/25 15:05 e-Cigarette/Vaping Use Never Used 03/22/25 15:05 PHQ-9: PHQ-9 Score PHQ-9: Total score 1 03/26/25 14:53 Thrive Assessment: Date of Thrive Assessment Date Thrive assessed 11/18/22 03/22/25 15:05 Currently or been in a relationship where the following occur: No concerns reported Const General: cooperative, healthy appearing, comfortable and no acute distress Orientation/consciousness: patient oriented x3 HENMT Head: Yes normocephalic Ears: hearing grossly normal bilaterally General nose exam: Normal external nose present Eyes General: appearance normal, both eyes and all related structures Conjunctivae: conjunctivae normal Neck Neck: Yes full ROM and Yes no lymphadenopathy Resp Effort & Inspection: normal respiratory effort Auscultation: clear to auscultation bilaterally, no crackles, no rales, no rhonchi and no wheezes Cardio Rate: regular rate Rhythm: regular rhythm Heart sounds: S1 normal heart sound present and S2 normal heart sound present Skin General skin exam: no rashes or lesions noted Neuro General: patient oriented x3 Gait exam (Neuro): Normal gait present Extrem General: Yes normal to inspection, Yes full ROM and No edema Right lower extremity: foot Details: normal to inspection Left lower extremity: foot Details: normal to inspection Psych Affect: normal affect Attitude: cooperative Insight: Good insight present (Psych) Judgement: Good judgement present (Psych) Coding Level of Care Code Est Pt Level 3 (35521) Diagnoses Plantar fasciitis M72.2 Time Spent (min) 34 Assessment & Plan Assessment & Plan (1) Plantar fasciitis: Code(s): M72.2 - Plantar fascial fibromatosis Category: Medical Plan: Pain to bilateral feet bottom worse in the mornings and described has a burning sensation-consistent with plantar fasciitis. Podiatry referral placed. Continue ibuprofen as needed and wear comfortable shoes. Orders: Referrals Podiatry Referral M72.2 - Plantar fascial fibromatosis
[2025-03-22 15:00] VITALS: BP 110/62; PULSE 79; RESP 18; TEMP 36.3; O2SAT 96; BMI 27.7
== END 2025-03-22 15:42 | disposition home or self-care (01) ==
LOC: HO.HMCH 14:43
PROVIDERS: PCP Internal Medicine
DX: M72.2 Plantar fascial fibromatosis (principal)

== ENCOUNTER → 2025-03-22 14:43 | Outpatient (BNVA) | payer SELFPAY | PROVIDERS: PCP Internal Medicine | DX: M72.2 Plantar fascial fibromatosis (principal) | CPT/HCPCS: 99212 ==